=== PATIENT | female | born 1950 | race Caucasian/White ===

== ENCOUNTER 2017-05-08 12:40 | Outpatient (CLI) | payer MEDICARE, BC | END 2017-05-08 12:41 | disposition home or self-care (01) | LOC: LAB.F 12:40 | PROVIDERS: ATTEND Naturopath | DX: Z13.1 Encounter for screening for diabetes mellitus (principal); Z13.6 Encounter for screening for cardiovascular disorders | CPT/HCPCS: 36415; 82672; 83036; 84144; 84403; 86141 ==

== ENCOUNTER 2017-08-18 09:53 | Outpatient (CLI) | payer MEDICARE, BC ==
--- NOTE | 2017-08-18 21:48 | CT Report ---
EXAM: CT ABDOMEN AND PELVIS (CT KUB) EXAM DATE: 08/18/2017 10:14 AM. CLINICAL HISTORY: Left flank pain. COMPARISONS: None. TECHNIQUE: Routine axial helical CT imaging was performed through the abdomen and pelvis without IV c ontrast. Reconstructions: Coronal and sagittal. In accordance with CT protocol optimization, one or more of the following dose reduction techniques w ere utilized for this exam: automated exposure control, adjustment of mA and/or KV based on patient s ize, or use of iterative reconstructive technique. FINDINGS: Lung Bases: Clear. Right Kidney/Ureter: No stones, hydronephrosis, or hydroureter. No perinephric fat stranding. Left Kidney/Ureter: No stones, hydronephrosis, or hydroureter. No perinephric fat stranding. Other Solid Organs: Noncontrast images of the solid organs are grossly unremarkable. Gallbladder/Bile Ducts: Unremarkable. Peritoneal Cavity: Mild sigmoid diverticulosis. The bowel is otherwise grossly unremarkable, without evident focal wall thickening or adjacent mesenteric fat stranding to suggest acute inflammatory proc ess, or evidence of bowel obstruction. The appendix is normal. No free fluid, pneumoperitoneum, or fr ank adenopathy. Pelvic Organs: No bladder stones or wall thickening. Noncontrast images of the uterus and ovaries are unremarkable. Vasculature: Trace atherosclerotic calcifications within the aorta and iliac arteries. Bones: Degenerative disk disease and facet arthropathy in the lower lumbar spine with associated grad e 1 anterolisthesis and mild bony central canal stenosis at L3-L4. No acute bony abnormality. Other: Tiny fat-containing umbilical hernia. IMPRESSION: 1. No calculi or evidence of obstruction along the genitourinary tracts. Within the limits of noncont rast examination, no alternate acute process identified to explain flank pain. 2. Mild sigmoid diverticulosis without CT evidence of acute diverticulitis. [facility] Referring Provider Line: [phone] SITE ID: [id number]
== END 2017-08-18 09:54 | disposition home or self-care (01) ==
LOC: DI 09:53
PROVIDERS: ATTEND Family Medicine
DX: R10.9 Unspecified abdominal pain (principal); K57.30 Diverticulosis of large intestine without perforation or abscess without bleeding
CPT/HCPCS: 74176

== ENCOUNTER 2018-05-07 06:39 | Outpatient (CLI) | payer MEDICARE | END 2018-05-07 06:40 | disposition EMS.NT | LOC: EMS 06:39 | PROVIDERS: ATTEND Surgery | DX: R10.9 Unspecified abdominal pain (principal); Z53.20 Procedure and treatment not carried out because of patient's decision for unspecified reasons ==

== ENCOUNTER 2018-05-15 12:11 | Outpatient (CLI) | payer MEDICARE, OTHER ==
[2018-05-16 07:01] LABS: PROGESTERONE 0.5 ng/mL
== END 2018-05-15 12:12 | disposition home or self-care (01) ==
LOC: LAB.F 12:11
PROVIDERS: ATTEND Naturopath
DX: Z79.890 Hormone replacement therapy (principal)
CPT/HCPCS: 36415; 81599; 82670; 82672; 84144

== ENCOUNTER 2018-09-01 05:22 | Outpatient (CLI) | payer MEDICARE | END 2018-09-01 05:23 | disposition critical access hospital (66) | LOC: EMS 05:22 | PROVIDERS: ATTEND Surgery | DX: R10.9 Unspecified abdominal pain (principal) | CPT/HCPCS: A0425; A0427 ==

== ENCOUNTER 2018-09-01 05:43 | Emergency (ER) | payer MEDICARE ==
[2018-09-01] MEDS ORDERED: SODIUM CHLORIDE 0.9% 1,000 ML IV ONE (06:01)
--- NOTE | 2018-09-01 06:03 | ED Physician Documentation ---
<Hari Leslie - Last Filed: 09/01/18 09:21> History of Present Illness - Stated complaint Stated Complaint: ABD PAIN - Chief complaint Chief Complaint: Abd Pain PD PAST MEDICAL HISTORY - Present Medications Home Medications: Ambulatory Orders Medication Instructions Recorded Confirmed RX: Hydrochlorothiazide 25 mg PO DAILY 05/01/14 05/01/14 RX: Metoprolol Tartrate 25 mg PO BID 05/01/14 05/01/14 Hydrocodone/Acetaminophen 1 - 2 each PO Q6H PRN #14 tablet 09/01/18 [Hydrocodon-Acetaminophen 5-325] RX: Magnesium 1 tab PO DAILY 09/01/18 09/01/18 - Allergies Allergies/Adverse Reactions: Allergies Allergy/AdvReac Type Severity Reaction Status Date / Time egg Allergy Unknown Verified 09/01/18 05:49 Results - Rads (name of study) ultrasound gallbladder Radiology: Prelim report reviewed (Impression: Multiple tiny mobile stones in the gallbladder measuring less than 2 mm no secondary signs of acute cholecystitis.), EMP read indepedently, See rad report PD MEDICAL DECISION MAKING - ED course ED course: 67-year-old female with a history of hypertension and irritable bowel syndrome developed acute abdominal pain at 1:30 in the morning this was much more severe than she is ever had previously and on evaluation she was found to have a tender right upper quadrant. Care of the patient was turned over to me by Dr. Michelle at shift change with ultrasound pending and a concerning WBC. Ultrasound shows multiple tiny gallstones and the patient has had relief of her pain. She no longer has Valle sign. I personally discussed the case with the patient and her and examined the patient at the time of discharge her right upper quadrant pain was virtually resolved. I discussed with the patient a change in her diet to reduce the fat intake and a follow-up with the surgeon. I have provided a prescription for a limited amount of pain medication and indicated to the patient should she have persistence of pain lasting more than 4 to 5 hours to return to the emergency department for evaluation of cholecystitis. Departure - Departure Disposition: 01 Home, Self Care Clinical Impression: Cholelithiasis Instructions: ED Gallstone W Biliary Colic Follow-Up: Chinedu Cherry MD [Provider Admit Priv/Credential] - Prescriptions: Hydrocodone/Acetaminophen [Hydrocodon-Acetaminophen 5-325] 1 - 2 each PO Q6H PRN #14 tablet PRN Reason: pain Discharge Date/Time: 09/01/18 09:36 <Viki Michelle - Last Filed: 09/01/18 20:03> History of Present Illness - History obtained from History obtained from: Patient - Additonal information Additional information: Patient is a 67-year-old female with history of hypertension and chronic abdominal issues presenting with sudden onset of diffuse upper abdominal pain of approximately 1:30 AM today associated with several nonbloody stools. Patient denies significant nausea, vomiting, fever, or urinary changes. Patient denies any new medications, foods, or travel. Patient reports that she follows a gluten-free diet, which usually helps avoid GI upset. Patient reports that in 2009, she began to have abdominal issues and with her diet changes, these mostly resolved until the past 1 year. Patient reports that she has intermittent episodes such as these frequently. Patient has not seen her primary care physician or technical services specialist about these complaints. No other improving or worsening factors to her symptoms noted. Review of Systems Constitutional: denies: Fever GI: reports: Abdominal Pain, Diarrhea PD PAST MEDICAL HISTORY - Past Medical History Past Medical History: Yes Cardiovascular: None Respiratory: Asthma Endocrine/Autoimmune: None - Past Surgical History Past Surgical History: No - Social History Does the pt smoke?: No Smoking Status: Never smoker Does the pt drink ETOH?: No Does the pt have substance abuse?: No - Immunizations Immunizations are current?: Yes Immunizations: TDAP >10years/unknown - POLST Patient has POLST: No PD ED PE NORMAL - General General: Alert and oriented X 3, No acute distress, Well developed/nourished - HEENT HEENT: Moist mucous membranes - Cardiac Cardiac: RRR, No murmur - Respiratory Respiratory: No respiratory distress, Clear bilaterally - Abdomen Abdomen: Normal bowel sounds, Soft, Non distended. No: Non tender (mild diffuse upper abdominal tenderness, worsein RUQ, positive Valle's sign) - Derm Derm: Normal color, Warm and dry, No rash - Extremities Extremities: No deformity, No tenderness to palpate, No edema - Neuro Neuro: Alert and oriented X 3, No motor deficit, No sensory deficit - Psych Psych: Normal mood, Normal affect Results - Vitals Vitals: Vital Signs - 24 hr 09/01/18 09/01/18 09/01/18 05:45 05:51 07:09 Temperature 36.3 C L Heart Rate 63 59 L 63 Respiratory 16 16 16 Rate Blood Pressure 141/65 H 141/65 H 128/58 L O2 Saturation 100 100 100 09/01/18 09:34 Temperature Heart Rate 67 Respiratory 16 Rate Blood Pressure 123/63 O2 Saturation 99 Oxygen O2 Source Room air - Labs Labs: Laboratory Tests 09/01/18 09/01/18 09/01/18 06:08 06:08 06:38 WBC 23.4 H RBC 4.35 Hgb 12.8 Hct 39.3 MCV 90.4 MCH 29.5 MCHC 32.7 RDW 13.7 Plt Count 240 MPV 8.0 Neut # (Auto) 21.9 H Lymph # (Auto) 0.6 L [place] # (Auto) 0.7 Eos # (Auto) 0.0 Baso # (Auto) 0.2 H Absolute Nucleated RBC 0.01 Band Neuts % (Manual) Not Reportable Abnorm Lymph % (Manual) Not Reportable Nucleated RBC % 0.0 Neutrophils # (Manual) Not Reportable Lymphocytes # (Manual) Not Reportable Monocytes # (Manual) Not Reportable Eosinophils # (Manual) Not Reportable Basophils # (Manual) Not Reportable Differential Comment MANUAL=AUTO DIFF Platelet Estimate NORMAL (130-450,000) RBC Morph Micro Appear NORMAL APPEARANCE Sodium 138 Potassium 3.5 Chloride 103 Carbon Dioxide 25 Anion Gap 10.0 BUN 18 Creatinine 0.7 Estimated GFR (MDRD) 83 L Glucose 140 H Lactic Acid Calcium 8.8 Total Bilirubin 1.3 H AST 30 ALT 35 Alkaline Phosphatase 64 Total Protein 6.3 L Albumin 3.8 Globulin 2.5 Albumin/Globulin Ratio 1.5 Lipase 36 Urine Color YELLOW Urine Clarity CLEAR Urine pH 7.0 Ur Specific [place] <=1.005 Urine Protein NEGATIVE Urine Glucose (UA) NEGATIVE Urine Ketones TRACE Urine Occult Blood TRACE-INTA Urine Nitrite NEGATIVE Urine Bilirubin NEGATIVE Urine Urobilinogen 0.2 (NORMAL) Ur Leukocyte Esterase NEGATIVE Ur Microscopic Review NOT INDICATED Urine Culture Comments NOT INDICATED 09/01/18 06:49 WBC RBC Hgb Hct MCV MCH MCHC RDW Plt Count MPV Neut # (Auto) Lymph # (Auto) [place] # (Auto) Eos # (Auto) Baso # (Auto) Absolute Nucleated RBC Band Neuts % (Manual) Abnorm Lymph % (Manual) Nucleated RBC % Neutrophils # (Manual) Lymphocytes # (Manual) Monocytes # (Manual) Eosinophils # (Manual) Basophils # (Manual) Differential Comment Platelet Estimate RBC Morph Micro Appear Sodium Potassium Chloride Carbon Dioxide Anion Gap BUN Creatinine Estimated GFR (MDRD) Glucose Lactic Acid 1.1 Calcium Total Bilirubin AST ALT Alkaline Phosphatase Total Protein Albumin Globulin Albumin/Globulin Ratio Lipase Urine Color Urine Clarity Urine pH Ur Specific [place] Urine Protein Urine Glucose (UA) Urine Ketones Urine Occult Blood Urine Nitrite Urine Bilirubin Urine Urobilinogen Ur Leukocyte Esterase Ur Microscopic Review Urine Culture Comments PD MEDICAL DECISION MAKING - ED course Complexity details: reviewed old records, reviewed results, re-evaluated patient, considered differential, d/w patient ED course: Most concerning for acute cholycystitis, biliary colic, IBS, acute on chronic abdominal pain given patient's known food allergies, chronicity of abdominal issues, location of pain today and PE findings.Vital signs within normal limits upon arrival. Patient afebrile. Patient started on IV fluids, as well as received Zofran and fentanyl in route by ambulance. Patient reports significant improvement of all symptoms with medications. At this time, do not feel she requires repeat doses, but will continue to monitor. Physical exam is relatively unremarkable except for significant right upper quadrant pain, consistent with a positive Valle sign. Given the intermittent nature of her chronic abdominal pain, her symptoms could be reflective of biliary colic that has now worsened to acute cholecystitis. However, again, given the intermittent nature and chronicity of her symptoms, also feel that celiac disease, IBS, and other inflammatory processes could be contributory. Lower suspicion for appendicitis, diverticulitis, small bowel obstruction, AAA, renal disease, or UTI based on exam and symptoms, but considered. Will obtain blood work, as well as urinalysis. Abdominal ultrasound ordered and awaiting pest control service technician arrival at 0700 .Given the gallbladder concern, feel ultrasound is more appropriate than CT alone at this time. Depending on ultrasound results, may also obtain CT imaging. Lab work returned relatively unremarkable except for significant leukocytosis and mild elevation in total bilirubin. Given market leukocytosis, felt appropriate to add on lactate, although patient does not appear septic. Lactate returned within normal limits. Awaiting urine and US. Patient signed off to oncoming physician and disposition dependent on results and patient's repeat exam.
[2018-09-01 06:18] LABS: BASOPHILS # (AUTO) 0.2 10^3/uL (0.0-0.1); BASOPHILS % (AUTO) 0.8 %; HGB - HEMOGLOBIN 12.8 g/dL (12.0-16.0); LYMPHOCYTES # (AUTO) 0.6 10^3/uL (1.5-3.5); LYMPHOCYTES % (AUTO) 2.5 %; MEAN CORPUSCULAR HEMOGLOBIN 29.5 pg (27.0-31.0); MEAN CORPUSCULAR HGB CONC 32.7 g/dL (32.0-36.0); MEAN CORPUSCULAR VOLUME 90.4 fL (81.0-99.0); MONOCYTES # (AUTO) 0.7 10^3/uL (0.0-1.0); MONOCYTES % (AUTO) 3.1 %; NEUTROPHILS # (AUTO) 21.9 10^3/uL (1.5-6.6); NEUTROPHILS % (AUTO) 93.6 %; PLT - PLATELET COUNT 240 10^3/uL (130-450); RED BLOOD COUNT 4.35 10^6/uL (4.20-5.40); RED CELL DISTRIBUTION WIDTH 13.7 % (12.0-15.0); WHITE BLOOD COUNT 23.4 x10^3/uL (4.8-10.8)
[2018-09-01 06:28] LABS: ALBUMIN 3.8 g/dL (3.2-5.5); ALBUMIN/GLOBULIN RATIO 1.5 (1.0-2.2); BILIRUBIN,TOTAL 1.3 mg/dL (0.2-1.0); CALCIUM 8.8 mg/dL (8.5-10.3); CREATININE 0.7 mg/dL (0.4-1.0); TOTAL PROTEIN 6.3 g/dL (6.7-8.2)
[2018-09-01] MEDS ORDERED: HYDROmorphone 2 MG/ML VIAL IVP STA (06:44)
[2018-09-01 07:02] LABS: DIFFERENTIAL COMMENT MANUAL=AUTO DIFF; PLATELET ESTIMATE, MANUAL NORMAL (130-450,000) (NORMAL); RBC MORPHOLOGY (MULTIPLE) NORMAL APPEARANCE (NORMAL)
[2018-09-01 08:05] LABS: BILIRUBIN,URINE NEGATIVE (NEGATIVE); GLUCOSE, URINE (UA) NEGATIVE (NEGATIVE); KETONES,URINE (UA) TRACE mg/dL (NEGATIVE); LEUKOCYTE ESTERASE, URINE NEGATIVE (NEGATIVE); NITRITE,URINE NEGATIVE (NEGATIVE); OCCULT BLOOD,URINE TRACE-INTA (NEGATIVE); PROTEIN,URINE NEGATIVE (NEGATIVE); UROBILINOGEN,URINE 0.2 (NORMAL) E.U./dL (NORMAL)
[2018-09-01 08:08] LABS: CLARITY,URINE CLEAR (CLEAR)
--- NOTE | 2018-09-01 08:58 | Ultrasound Report ---
Reason: RUQ pain with diarrhea, concern for gallbladder Procedure Date: 09/01/2018 Accession Number: [id number] / [id number] Procedure: US - Abdomen Limited CPT Code: FULL RESULT: EXAM: ABDOMEN ULTRASOUND LIMITED, RUQ EXAM DATE: 09/01/2018 07:26 AM. CLINICAL HISTORY: RUQ pain with diarrhea, concern for gallbladder. COMPARISON: None. TECHNIQUE: Real-time scanning was performed with static images obtained. FINDINGS: Liver: Normal in size and echotexture. 15.5 cm. Main portal vein flow: Hepatopetal. Gallbladder: Multiple tiny mobile stones measuring less than 2 mm. No gallbladder wall thickening or sonographic Valle sign. Biliary System: CBD measures 4 mm. No intrahepatic or extrahepatic ductal dilatation. Other: The right kidney measures 10.9 cm in length. No hydronephrosis or renal calculus. IMPRESSION: Multiple tiny mobile stones in the gallbladder measuring less than 2 mm. The secondary signs of acute cholecystitis. [facility]
[2018-09-01 09:35] VITALS: BP 123/63
== END 2018-09-01 09:36 | disposition home or self-care (01) ==
LOC: EDUNIT# → ED 05:43
DX: K80.20 Calculus of gallbladder without cholecystitis without obstruction (principal); G89.29 Other chronic pain; I10 Essential (primary) hypertension
CPT/HCPCS: 36415; 76705; 80053; 81003; 83605; 83690; 85025; 96361; 96374; 99284; J1170; 81001; 87086

== ENCOUNTER 2019-09-11 02:41 | Outpatient (CLI) | payer MEDICARE | END 2019-09-11 02:42 | disposition EMS.NT | LOC: EMS 02:41 | PROVIDERS: ATTEND Surgery | DX: R00.2 Palpitations (principal) ==

== ENCOUNTER 2020-06-18 14:18 | Emergency (ER) | payer MEDICARE, OTHER ==
[2020-06-18 14:27] VITALS: BP 160/69
== END 2020-06-18 16:02 | disposition left against medical advice (07) ==
LOC: ED 14:18
DX: Z53.21 Procedure and treatment not carried out due to patient leaving prior to being seen by health care provider (principal)

== ENCOUNTER 2021-03-06 18:44 | Emergency (ER) | payer MEDICARE, OTHER ==
[2021-03-06 18:54] VITALS: BP 181/72
[2021-03-06] MEDS ORDERED: AMOX/CLAV 875 MG/125 MG TABLET PO STA (19:18)
[2021-03-06] MEDS ORDERED: TETANUS/DIPHTHERIA/PERTUSSIS 0.5 ML SYRINGE IM ONE (19:18)
--- NOTE | 2021-03-06 19:22 | ED Physician Documentation ---
History of Present Illness - Stated complaint Stated Complaint: RT HAND DOG BITE - Chief complaint Chief Complaint: Ext Problem - Additonal information Additional information: This is a 70-year-old female that presents emergency department for evaluation of dog bite to her right hand that occurred occurred yesterday evening when her small animal bit her. Her dog's vaccines are up-to-date. Patient applied hydrogen peroxide and then Neosporin to the wound but over the course of the last 24 hours she has had progressive erythema and mild tenderness surrounding the bite wound. Uncertain of her last tetanus Patient is currently completing a course of azithromycin for bronchitis Review of Systems Constitutional: reports: Reviewed and negative Nose: reports: Reviewed and negative Cardiac: reports: Reviewed and negative Respiratory: reports: Reviewed and negative GI: reports: Reviewed and negative : reports: Reviewed and negative Skin: reports: Bite / sting Musculoskeletal: reports: Extremity pain PD PAST MEDICAL HISTORY - Past Medical History Past Medical History: Yes Cardiovascular: None Respiratory: Asthma Endocrine/Autoimmune: None - Past Surgical History Past Surgical History: No - Present Medications Home Medications: Ambulatory Orders Medication Instructions Recorded Confirmed Metoprolol Tartrate 25 mg PO BID 05/01/14 05/01/14 hydroCHLOROthiazide 25 mg PO DAILY 05/01/14 05/01/14 [Hydrochlorothiazide] Hydrocodone/Acetaminophen 1 - 2 each PO Q6H PRN #14 tablet 09/01/18 [Hydrocodon-Acetaminophen 5-325] Magnesium 1 tab PO DAILY 09/01/18 09/01/18 Amox/Clav 875/125 [Augmentin] 1 each PO Q12H #14 tablet 03/06/21 - Allergies Allergies/Adverse Reactions: Allergies Allergy/AdvReac Type Severity Reaction Status Date / Time egg Allergy Unknown Verified 03/06/21 18:53 - Social History Does the pt smoke?: No Smoking Status: Never smoker Does the pt drink ETOH?: No Does the pt have substance abuse?: No - Immunizations Immunizations are current?: Yes Immunizations: TDAP >10years/unknown - POLST Patient has POLST: No PD ED PE EXPANDED - General General: Alert, No acute distress - Extremities Extremities: Right hand (Single puncture wound on dorsum of right hand between index and middle finger. Generalized surrounding erythema and mild induration measuring approximately 4 x 4 cm. Patient able to make a full grasp with her hands. No findings to suggest tenosynovitis.) Results - Vitals Vitals: Vital Signs - 24 hr 03/06/21 18:48 Temperature 36.5 C Heart Rate 77 Respiratory 15 Rate Blood Pressure 181/72 H O2 Saturation 98 Oxygen O2 Source Room air PD MEDICAL DECISION MAKING - ED course Complexity details: considered differential, d/w patient ED course: 70-year-old female presents emergency department for evaluation of a dog bite wound on the dorsum of her right hand sustained yesterday evening. Over the last 24 hours she has developed a clear cellulitis. Tetanus was updated today. Patient will be started on Augmentin. Advised warm compresses antibiotic ointment. On exam no findings to suggest tenosynovitis. Emergent return precautions were discussed for concerns of worsening infection. Departure - Departure Disposition: 01 Home, Self Care Clinical Impression: Dog bite of right hand with infection Qualifiers: Encounter type: initial encounter Qualified Code(s): S61.451A - Open bite of right hand, initial encounter; L08.9 - Local infection of the skin and subcutaneous tissue, unspecified; W54.0XXA - Bitten by dog, initial encounter Condition: Stable Record reviewed to determine appropriate education?: Yes Instructions: ED Bite Dog Ch Prescriptions: Amox/Clav 875/125 [Augmentin] 1 each PO Q12H #14 tablet Comments: Lucie your right hand has an infection after being bitten by the dog. Your first dose of antibiotic was given here in the emergency department. Please fill the prescription for the Augmentin tomorrow and begin taking twice daily for the next week. I encourage you to place a warm compress over the hand for 10 minutes 3 times a day. If despite taking 2 or 3 doses of the antibiotic you begin to have increased pain, swelling any fevers or red streaking then return immediately to the ER for a repeat evaluation. Your tetanus was updated today and should be good for the next 7 to 10 years. Your prescription has been sent to the [facility] in [place]
== END 2021-03-06 19:44 | disposition home or self-care (01) ==
LOC: ED 18:44
DX: S61.451A Open bite of right hand, initial encounter (principal); W54.0XXA Bitten by dog, initial encounter; Z23 Encounter for immunization
CPT/HCPCS: 90471; 90715; 99283; A9270

== ENCOUNTER 2021-04-06 14:22 | Outpatient (CLI) | payer MEDICARE, OTHER ==
--- NOTE | 2021-04-06 15:34 | XRAY Report ---
PROCEDURE: Chest 2 View X-Ray INDICATIONS: CHEST STUDY, UNSPECIFIED ASTHMA W/ACUTE EXACERBATI TECHNIQUE: 2 view(s) of the chest. COMPARISON: None. FINDINGS: Surgical changes and devices: None. Lungs and pleura: No pleural effusions or pneumothorax. Lungs are clear. Mediastinum: Mediastinal contours are normal. Heart size is normal. Bones and chest wall: No suspicious bony abnormalities. Soft tissues appear unremarkable. IMPRESSION: No acute cardiopulmonary pathology. Reviewed by: David Rivera MD on 04/06/2021 3:33 PM PST Approved by: David Rivera MD on 04/06/2021 3:33 PM [facility] Station ID: [id number]
== END 2021-04-06 14:23 | disposition home or self-care (01) ==
LOC: DI.S 14:22
DX: J45.901 Unspecified asthma with (acute) exacerbation (principal); J20.9 Acute bronchitis, unspecified

== ENCOUNTER 2021-06-29 08:00 | Outpatient (CLI) | payer MEDICARE, OTHER ==
--- NOTE | 2021-06-29 12:49 | XRAY Report ---
PROCEDURE: Knee 3 View LT INDICATIONS: PAIN IN LEFT KNEE TECHNIQUE: 3 views of the left knee(s) were acquired. COMPARISON: None. FINDINGS: BONES/JOINT: No acute, displaced fracture or dislocation. Small suprapatellar joint effusion. SOFT TISSUES: No significant abnormality. IMPRESSION: 1.No acute osseous abnormality. Reviewed by: Dino Mcdonald MD on 06/29/2021 12:48 PM PST Approved by: Dino Mcdonald MD on 06/29/2021 12:48 PM PST Station ID: [id number]
== END 2021-06-29 23:59 | disposition home or self-care (01) ==
LOC: DI.S 08:00
PROVIDERS: ATTEND Physician Assistant Medical
DX: M25.562 Pain in left knee (principal)

== ENCOUNTER 2021-08-17 10:28 | Outpatient (CLI) | payer MEDICARE, OTHER ==
[2021-08-17 14:36] LABS: BASOPHILS # (AUTO) 0.1 10^3/uL (0.0-0.1); BASOPHILS % (AUTO) 0.9 %; EOSINOPHILS # (AUTO) 0.3 10^3/uL (0.0-0.7); EOSINOPHILS % (AUTO) 3.1 %; HCT - HEMATOCRIT 40.2 % (37.0-47.0); HGB - HEMOGLOBIN 13.4 g/dL (12.0-16.0); LYMPHOCYTES # (AUTO) 2.3 10^3/uL (1.5-3.5); LYMPHOCYTES % (AUTO) 28.7 %; MEAN CORPUSCULAR HGB CONC 33.3 g/dL (32.0-36.0); MEAN CORPUSCULAR VOLUME 90.1 fL (81.0-99.0); MEAN PLATELET VOLUME 10.8 fL (7.9-10.8); MONOCYTES # (AUTO) 0.6 10^3/uL (0.0-1.0); MONOCYTES % (AUTO) 6.9 %; NEUTROPHILS # (AUTO) 4.7 10^3/uL (1.5-6.6); NEUTROPHILS % (AUTO) 59.6 %; PLT - PLATELET COUNT 276 10^3/uL (130-450); RED BLOOD COUNT 4.46 10^6/uL (4.20-5.40); RED CELL DISTRIBUTION WIDTH 13.2 % (12.0-15.0); WHITE BLOOD COUNT 7.9 x10^3/uL (4.8-10.8)
[2021-08-17 15:32] LABS: ALBUMIN 3.9 g/dL (3.2-5.5); ALBUMIN/GLOBULIN RATIO 1.6 (1.0-2.2); ALKALINE PHOSPHATASE 67 IU/L (42-121); ALT ALANINE AMINOTRANSFERASE 40 IU/L (10-60); AST ASPARTATE AMINOTRANSFERASE 32 IU/L (10-42); BUN - BLOOD UREA NITROGEN 19 mg/dL (6-20); CALCIUM 9.3 mg/dL (8.5-10.3); CARBON DIOXIDE - CO2 27 mmol/L (21-32); CHLORIDE 96 mmol/L (101-111); CHOL/HDL RATIO 4.4 (<4.4); CHOLESTEROL 231 mg/dL; CREATININE 0.9 mg/dL (0.4-1.0); GFR - MDRD 62 (>89); GLUCOSE 97 mg/dL (70-100); HDL CHOLESTEROL 53 mg/dL; LDL CHOLESTEROL,CALCULATED 157 mg/dL; POTASSIUM 4.2 mmol/L (3.5-5.0); SODIUM 132 mmol/L (135-145); TOTAL PROTEIN 6.4 g/dL (6.7-8.2); TRIGLYCERIDES 107 mg/dL; VLDL CHOLESTEROL 21 mg/dL
[2021-08-18 12:02] LABS: HEPATITIS C ANTIBODY NON-REACTIVE (NON-REACTIVE)
== END 2021-08-17 10:29 | disposition home or self-care (01) ==
LOC: LAB.S 10:28
PROVIDERS: ATTEND Nurse Practitioner Family
DX: I10 Essential (primary) hypertension (principal); Z11.59 Encounter for screening for other viral diseases; Z13.1 Encounter for screening for diabetes mellitus; Z13.220 Encounter for screening for lipoid disorders
CPT/HCPCS: 36415; 80053; 80061; 83721; 84443; 85025; 86803

== ENCOUNTER 2022-06-08 09:35 | Outpatient (CLI) | payer MEDICARE, OTHER ==
--- NOTE | 2022-06-08 13:01 | XRAY Report ---
PROCEDURE: Abdomen 2 View X-Ray INDICATIONS: URGENT DESIRE TO URINATE TECHNIQUE: 2 views of the abdomen were acquired. COMPARISON: CT abdomen/pelvis 08/18/2017 FINDINGS: Surgical changes and devices: None. Bowel: No pneumoperitoneum. The bowel gas pattern is normal. Soft tissues: No masses; visualized solid organ contours appear normal in size. No suspicious abdom inal calcifications. Bones: No suspicious bony abnormalities. Degenerative changes are seen at the lower lumbar spine. IMPRESSION: Nonobstructive bowel gas pattern. No renal calculus is visualized radiographically. Reviewed by: Carlos Flaherty MD on 06/08/2022 1:00 PM PST Approved by: Carlos Flaherty MD on 06/08/2022 1:00 PM PST Station ID: [id number]
--- NOTE | 2022-06-08 15:27 | Ultrasound Report ---
PROCEDURE: Retroperitoneal INDICATIONS: URGENT DESIRE TO URINATE TECHNIQUE: Real-time scanning was performed of the retroperitoneal organs, with image documentation. COMPARISON: None. FINDINGS: Kidneys: Kidneys demonstrate minimal atrophy. Right kidney measures 10 point cm long; left kidney m easures 11.1 cm long. Right renal cortical thickness is 1.4 cm; left renal cortical thickness is 1.4 cm. No solid masses, hydronephrosis, or nephrolithiasis. Bladder: Pre-void bladder volume is 189 mL. Post-void residual is 12 mL. Pre-void images demonstra te no intraluminal masses or stones. On pre-void images, bilateral ureteral jets are noted with colo r Doppler interrogation. (Of note, ureteral jets may not be detectable in up to 25% of cases due to insufficient differences in specific gravity between ureteral and bladder urine). Miscellaneous: No free abdominal fluid. IMPRESSION: No significant post void residual. Reviewed by: Sade Greene MD on 06/08/2022 3:26 PM PST Approved by: Sade Greene MD on 06/08/2022 3:26 PM PST Station ID: [id number]
== END 2022-06-08 09:36 | disposition home or self-care (01) ==
LOC: DI 09:35
PROVIDERS: ATTEND Nurse Practitioner Family
DX: R39.15 Urgency of urination (principal)

== ENCOUNTER 2022-09-06 14:07 | Outpatient (CLI) | payer MEDICARE, OTHER ==
--- NOTE | 2022-09-06 15:47 | DEXA Report ---
PROCEDURE: Dexa Spine and/or Hip INDICATIONS: MENOPAUSAL TECHNIQUE: Dual energy x-ray absorptiometry (DXA) was performed on a [employer] System. Regions measur ed are the AP Spine, femoral neck, and if needed forearm. COMPARISON: None. FINDINGS: Lumbar Spine: Bone Mineral Density 1.136 g/cm/cm,T score -0.4, normal. Left Femoral Neck: Bone Mineral Density 0.838 g/cm/cm, T score -1.4, osteopenia. Left Hip: Bone Mineral Density 0.896 g/cm/cm,T score -0.9, normal (T score greater or equal to -1.0: NORMAL) (T score from -1.1 to -2.4: OSTEOPENIA) (T score less than or equal to -2.5 to: OSTEOPOROSIS) Impression: Based on WHO criteria, the patient is osteopenic. Patients with diagnosis of osteoporosis or osteopenia should have regular bone mineral density assess ment. For those eligible for Medicare, routine testing is allowed once every 2 years. Testing frequ ency can be increased for patients who have rapidly progressing disease or for those who are receivin g medical therapy to restore bone mass. Reviewed by: Abbi Manrique MD on 09/06/2022 3:46 PM PDT Approved by: Abbi Manrique MD on 09/06/2022 3:46 PM PDT Station ID: [id number]
== END 2022-09-06 14:08 | disposition home or self-care (01) ==
LOC: DI 14:07
PROVIDERS: ATTEND Nurse Practitioner Family
DX: M85.88 Other specified disorders of bone density and structure, other site (principal)

== ENCOUNTER 2023-01-03 14:43 | Outpatient (CLI) | payer MEDICARE, OTHER ==
--- NOTE | 2023-01-04 09:24 | XRAY Report ---
PROCEDURE: Hip w/Pelvis 2-3V RT INDICATIONS: LOW BACK PAIN, UNSPECIFIED TECHNIQUE: AP pelvis with lateral view(s) of the right hip(s). COMPARISON: None. FINDINGS: Bones: No fractures or dislocations. No suspicious bony lesions. There is mild bilateral hip join t degeneration. Soft tissues: No suspicious soft tissue calcifications or masses. IMPRESSION: No acute osseous abnormality. Mild bilateral hip joint degeneration. Reviewed by: Isabela Mata MD on 01/04/2023 9:22 AM PDT Approved by: Isabela Mata MD on 01/04/2023 9:22 AM PDT Station ID: [id number]
--- NOTE | 2023-01-04 15:58 | XRAY Report ---
PROCEDURE: Lumbar Spine 2 View INDICATIONS: LOW BACK PAIN, UNSPECIFIED TECHNIQUE: 2 views of the lumbar spine were acquired. COMPARISON: None. FINDINGS: Bones: 5 [id number] vertebrae are present. There is 9 mm anterolisthesis of L4 on L5. Mild dege nerative changes of the lumbar spine. No acute fracture or traumatic subluxation. Soft tissues: Overlying bowel gas pattern is normal. No suspicious soft tissue calcifications. IMPRESSION: No acute osseous abnormality. Grade 1 anterolisthesis of L4 on L5 Reviewed by: Isabela Mata MD on 01/04/2023 3:57 PM PDT Approved by: Isabela Mata MD on 01/04/2023 3:57 PM PDT Station ID: [id number]
== END 2023-01-03 14:44 | disposition home or self-care (01) ==
LOC: DI 14:43
DX: M43.16 Spondylolisthesis, lumbar region (principal); M16.0 Bilateral primary osteoarthritis of hip; Z91.81 History of falling

== ENCOUNTER 2023-03-20 14:07 | Outpatient (CLI) | payer MEDICARE, OTHER ==
--- NOTE | 2023-03-20 15:22 | XRAY Report ---
PROCEDURE: Chest 2 View X-Ray INDICATIONS: WHEEZING TECHNIQUE: 2 views of the chest were acquired. COMPARISON: 04/06/2021. FINDINGS: Surgical changes and devices: None. Lungs and pleura: No pleural effusions or pneumothorax. Lungs are clear. Mediastinum: Mediastinal contours appear normal. Heart size is normal. Bones and chest wall: No suspicious bony lesions. Overlying soft tissues appear unremarkable. IMPRESSION: No acute cardiopulmonary process. Reviewed by: Alanna Dickson MD, PhD on 03/20/2023 3:20 PM PST Approved by: Alanna Dickson MD, PhD on 03/20/2023 3:20 PM PST Station ID: [id number]
== END 2023-03-20 14:08 | disposition home or self-care (01) ==
LOC: DI 14:07
PROVIDERS: ATTEND Registered Nurse
DX: R06.2 Wheezing (principal)

== ENCOUNTER 2023-08-31 06:22 | Outpatient (CLI) | payer MEDICARE, OTHER | END 2023-08-31 23:59 | disposition left against medical advice (07) | LOC: EMS 06:22 | DX: R10.9 Unspecified abdominal pain (principal); R07.9 Chest pain, unspecified ==

== ENCOUNTER 2024-01-10 15:09 | Outpatient (CLI) | payer MEDICARE, OTHER ==
[2024-01-10] MEDS ORDERED: iohexoL-300 100 ML VIAL ONE (15:14)
[2024-01-10] MEDS ORDERED: DIATRIZOATE MEGLU/DIATRIZO SOD 30 ML BOTTLE PO ONE (15:14)
[2024-01-10 15:38] LABS: CREATININE 0.8 mg/dL (0.6-1.3)
[2024-01-10] MEDS: iohexoL-300 100 ML VIAL IVP ONE (16:57)
[2024-01-10] MEDS: DIATRIZOATE MEGLU/DIATRIZO SOD 30 ML BOTTLE PO ONE (16:57)
--- NOTE | 2024-01-11 12:37 | CT Report ---
PROCEDURE: Abdomen/Pelvis W INDICATIONS: ABD PAIN CONTRAST: 100 [id number] TECHNIQUE: After the administration of intravenous contrast, a CT scan of the abdomen and pelvis was performed. Images were recorded and evaluated at appropriate window settings. Reformats: coronal and sagittal. F or radiation dose reduction, the following was used: automated exposure control, adjustment of mA and /or kV according to patient size. COMPARISON: 08/18/2017 FINDINGS: Image quality: Diagnostic Lower chest: Lung bases appear unremarkable Possible trace hiatal hernia. Heart size is within normal limits Liver: No solid mass. Gallbladder and biliary system: Unremarkable biliary system. Gallbladder is not seen Pancreas: No ductal dilation Spleen: Nonenlarged Adrenals: No discrete nodules Kidneys: Early excreted contrast in the renal pelvises. No hydronephrosis. No solid renal mass Mild perinephric fat stranding is nonspecific, probably senescent, slightly increased from 2018. Vessels and lymph nodes: Main portal vein is patent. No abdominal aortic aneurysm. No pathologic lymp h nodes by size criteria. Bowel and peritoneum: No evidence of small bowel obstruction. There are colonic diverticula. The appendix is nondilated No pathologic ascites. Body wall: Tiny fat-containing umbilical hernia Pelvis: Bladder is unremarkable. Reproductive organs are not well evaluated on CT there is possible e ndometrial thickening measuring 7 to 8 mm. Bones: Degenerative changes, no acute or suspicious osseous finding. IMPRESSION: No definite acute abdominopelvic abnormality. Nonspecific perinephric fat stranding, probably senescent changes, however consider urinalysis correl ation to assess for infection. Incidentally noted mild endometrial thickening, consider pelvic ultrasound for more accurate measurem ent and correlate with any clinical symptoms of postmenopausal bleeding. Other findings above. Reviewed by: Danilo Leigh MD on 01/11/2024 12:36 PM PDT Approved by: Danilo Leigh MD on 01/11/2024 12:36 PM PDT Station ID: [id number]
== END 2024-01-10 15:10 | disposition home or self-care (01) ==
LOC: LAB 15:09
PROVIDERS: ATTEND Internal Medicine Gastroenterology
DX: R10.84 Generalized abdominal pain (principal)
CPT/HCPCS: 36415; 74177; 82565; Q9963; Q9967